=== PATIENT | female | born 1930 | race Caucasian/White ===

== ENCOUNTER 2016-07-27 21:01 | Observation (INO) ==
--- NOTE | 2016-07-27 21:33 | EKG Report ---
Test Performed on : 07/27/2016 9:24:06 PM Test Reason : CHEST PAIN Blood Pressure : / mmHG Vent. Rate : 070 BPM Atrial Rate : 070 BPM P-R Int : 154 ms QRS Dur : 098 ms QT Int : 446 ms P-R-T Axes : 036 -11 003 degrees QTc Int : 481 ms Sinus rhythm. with occasional premature ventricular complexes. Otherwise normal ECG No previous ECGs available Unconfirmed Result
[2016-07-27 21:51] LABS: BASO% 0.3 % (0.0-0.8); EOS% 0.8 % (0.0-10.0); HEMATOCRIT 40.8 % (37.0-47.0); HEMOGLOBIN 13.6 g/dL (12.0-16.0); IMM GRAN# 0.02 X1000 (0.0-0.04); IMM GRAN% 0.2 % (0.0-0.5); LYMPH# 1.09 X1000 (1.2-3.4); LYMPH% 8.3 % (20.5-51.1); MANUAL DIFF NEEDED? NO; MCH 28.6 PG (27-31); MCHC 33.3 g/dL (33-37); MCV 85.7 FL (81-99); MONO# 0.64 X1000 (0.11-0.59); MONO% 4.9 % (1.7-9.3); MPV 10.3 FL (7.4-10.4); NEUT% 85.5 % (42.2-75.2); PLT 281 X1000 (130-400); RBC 4.76 XMIL (4.2-5.4)
[2016-07-27 22:03] LABS: INR 0.97 (0.86-1.15); PROTIME 13.2 Seconds (12.1-15.5); PTT PL 29.5 Seconds (22.6-43.9)
[2016-07-27 22:04] LABS: AMYLASE 33 U/L (20-200); LIPASE 22 U/L (13-60)
[2016-07-27 22:08] LABS: AGAP 13; ALBUMIN 3.9 g/dL (3.5-5.0); ALKALINE PHOSPHATASE 116 U/L (32-104); BUN 16 mg/dL (8-22); CALCIUM 9.5 mg/dL (8.8-10.2); CHLORIDE 96 mmol/L (98-107); CK PROFILE 72 U/L (24-173); COSMO 276; GOT 12 U/L (10-30); GPT < 5 U/L (10-36); MAGNESIUM 1.8 mg/dL (1.5-2.7); POTASSIUM 3.4 mmol/L (3.5-5.1); SODIUM 135 mmol/L (136-145); TCO2 26 mmol/L (25-35)
[2016-07-27] MEDS ORDERED: ZOFRAN IV ONE (22:31)
[2016-07-27] MEDS ORDERED: MORPHINE IV ONE (22:31)
[2016-07-28] MEDS ORDERED: MORPHINE IV PRN (01:02)
[2016-07-28] MEDS ORDERED: ZOFRAN IV PRN (01:02)
[2016-07-28] MEDS ORDERED: NS 1,000 ML IV ONE (01:02)
--- NOTE | 2016-07-28 01:51 | Diag Imaging Result Document ---
PROCEDURE NAME: HEAD W/O CONTRAST - 07/27/2016 STUDY: CT brain without contrast. PROTOCOL: Dose reduction protocol. No parenchymal hemorrhage. No epidural or subdural hematoma. No subarachnoid hemorrhage. No mass identified on this noncontrasted exam. Mild atrophy. No hydrocephalus. No sinus opacification. IMPRESSION: 1. No hemorrhage. 2. Atrophy with mild microvascular ischemic changes. A preliminary report was given at 11:25 p.m.
[2016-07-28] MEDS: TYLENOL PO PRN ×3 (03:00→15:56)
[2016-07-28] MEDS ORDERED: AVAPRO PO ONE (07:02)
[2016-07-28] MEDS ORDERED: COREG PO SCH (09:00)
[2016-07-28] MEDS ORDERED: HYDROCHLOROTHIAZIDE PO SCH (09:00)
--- NOTE | 2016-07-28 09:13 | Diag Imaging Result Document ---
PROCEDURE NAME: CHEST-2 VIEWS - 07/27/2016 FRONTAL AND LATERAL CHEST, TWO VIEWS: FINDINGS: The lungs are well expanded. The heart is not enlarged. The vessels are not distended. No pneumonia. No pleural effusions. No free air beneath the diaphragm. Mild to moderate scoliosis. IMPRESSION: No acute abnormality.
--- NOTE | 2016-07-28 10:20 | Diag Imaging Result Document ---
PROCEDURE NAME: ANGIOGRAM/PULMONARY ARTERIES - 07/28/2016 CT CHEST WITH INTRAVENOUS CONTRAST: FINDINGS: There is normal opacification of the pulmonary arteries and their major branches. The heart is mildly enlarged. No thoracic aortic aneurysm or dissection. Prominent atherosclerosis. No pleural effusions. No consolidation. No bronchiectasis. IMPRESSION: 1. No pulmonary emboli. 2. Mild cardiomegaly. A preliminary report was given at 8:21 a.m.
[2016-07-28 15:45] VITALS: BP 155/68
--- NOTE | 2016-08-05 09:17 | HISTORY AND PHYSICAL ---
HISTORY: The patient is an 86-year-old female who presented to the emergency room complaining of chest pain. Was seen earlier in the day by myself. Was told to come back if she began to feel worse. Patient states now she is having pain in her left shoulder as well as in her chest. No vomiting, diarrhea, nausea, or shortness of breath at this time. The pain was located centrally in her chest. It was an aching pressure that radiated to her shoulders that had begun approximately 1 day prior and was still present when she presented to the emergency room. She was doing no special activity when this occurred, light activity at the best. She did not take an aspirin nor nitroglycerin prior to arrival. She had a previous cardiac workup earlier in the day. When she came to the ER, she had a normal set of vital signs other than her blood pressure was 171/99. Her electrolytes that they had done and comprehensive metabolic panel only showed a slightly low potassium at 3.4 and a glucose of 180. Her liver functions were normal. Cardiac enzymes again were normal. ProBNP was only 218. On CBC, white count was hematocrit was 40.8, platelet count was 281,000. Her D-dimer is 0.78. She was seen in the ER by Dr. Russell. Was given morphine and Zofran for her pain, along with Tylenol and normal saline was administered at 80 mL per hour. Troponins were again ordered. REVIEW OF SYSTEMS: Constitutional: She denies any fever, chills, weight gain, weight loss. Eyes: No visual changes. No irritation of her eyes. No field cuts. Ears, Nose, and Throat: No pharyngitis, otitis, or sinusitis. Cardiovascular: She denied palpitations, syncope, or significant peripheral edema, PND, or orthopnea. Respiratory: No cough, wheeze, phlegm production. Not particularly short of breath. Gastrointestinal: No nausea, vomiting, diarrhea, constipation, bloody stools, black tarry stools, abdominal pain. : No polyuria, dysuria, hematuria. Musculoskeletal: She denies any joint aches, muscle aches, or swelling. Skin: No skin rashes or lesions. Neurological: She had no focal neurological deficits. No headaches, migraines, or syncopal type symptoms. Endocrine: No polyuria, polydipsia, heat or cold intolerance. Allergic: No wheeze. No hayfever symptom. Past smoking history. PAST MEDICAL HISTORY: She has a history of hypertension. No other significant problems. PAST SURGICAL HISTORY: She has not had any surgical procedures. SOCIAL HISTORY: She is a nonsmoker and nondrinker. She does not abuse drugs. PHYSICAL EXAMINATION: VITAL SIGNS: At the time of admission, she was afebrile, pulse was 68, respiratory rate was 20. BP was 171/99, O2 saturation was 93% on room air. HEENT: Her head was normocephalic. Eyes were PERRLA. EOMs intact. Sclerae clear. Fundi benign. Nares patent. Oropharynx negative. NECK: Supple without any carotids, without thyromegaly or lymphadenopathy. CHEST: Bilaterally clear breath sounds. CARDIOVASCULAR: Regular rhythm and rate. No murmurs, gallops, clicks, or rubs. ABDOMEN: Soft. No hepatosplenomegaly. No CVA tenderness. EXTREMITIES: Negative for clubbing, cyanosis, or edema. NEUROLOGIC: Examination was symmetrical. ADMITTING DIAGNOSES: 1. Atypical chest pain. 2. History of hypertension. We also had a CT of her head done in the ER that was negative. cc: Steve Saldaña MD
--- NOTE | 2016-08-06 04:30 | DISCHARGE SUMMARY ---
ADMISSION DATE: 07/28/2016 DISCHARGE DATE: 07/28/2016 The patient presented to the emergency room complaining of shoulder and earlier in the day chest pain with a background history of hypertension and thyroid disease. She presented and was seen in the emergency room and hospitalized. DATABASE: Included the following: She had an initial chest x-ray that revealed no abnormalities. She had a CT of her head, no hemorrhages. Atrophy with mild microvascular ischemic changes. She had a pulmonary arteriogram which showed no pulmonary emboli, mild cardiomegalia. She had an electrocardiogram which showed sinus rhythm with occasional premature ventricular contractions; otherwise, normal. She had labs drawn. Laboratory Data: Her sedimentation rate was 36.4, white count was 13,120, hematocrit was 40.8, platelet count was 281,000. Her differential she had 86% neutrophils, 8.3% lymphocytes. Coag studies: D-dimer was 0.78, INR is 0.9. PTT 29.5. Chemistries: Sodium was 135, potassium 3.4, chloride 96, CO2 26, BUN 16, creatinine 0.8, glucose 180. ALT less than 5, AST 12, alkaline phosphatase 116. Serial cardiac enzymes were all negative. Troponin were all negative. Lipase and amylase likewise were normal. She had a brief overnight stay in the hospital. After she ruled out she was discharged on 07/28, afebrile. Respiratory rate is 18. O2 saturation was 98 on room air. Blood pressure 147/73, pulse was 95. We did a sedimentation rate and we may have considered pursuing as an outpatient a diagnosis of PMR and a possibility of a neck evaluation. She was discharged with atypical chest pain, history of hypertension, dyslipidemia, and will be following in the office. cc: Steve Saldaña MD
--- NOTE | 2016-08-24 19:22 | ED EKG INTERP ---
This chart was entered by Radha Green Scribe, acting as scribe for Barry Russell DO. EKG Interpretation - EKG Time of EKG reading by physician:: 21:25 EKG Read and Signed by:: Barry Russell EKG Interpretation (*Must complete 3 of following elements*): Normal Rate: 70 Rhythm: SR W/ OCCASIONAL PVC Vernalis: normal QRS: normal UT Interval: normal This chart was documented by the indicated scribe, (Radha Green Scribe) and accurately reflects the services I performed and decisions made by , Barry Russell DO, as attested by the provider's signature.
--- NOTE | 2016-08-24 19:23 | PROVIDER DOCUMENTATION ---
This chart was entered by Radha Green Scribe, acting as scribe for Barry Russell DO. HPI-Chest Pain - General Chief Complaint: Shoulder Pain Stated Complaint: CHEST PAIN/WAS HERE IN TH AM Time Seen by Provider: 07/27/16 21:13 Source: patient Allergies/Adverse Reactions: Patient Allergies Allergy/AdvReac Type Severity Reaction Status Date / Time No Known Allergies Allergy Verified 07/27/16 08:39 Home Medications: Home Medication List Medication Instructions Recorded Confirmed Last Taken Type Carvedilol [Coreg] 1 tab PO DAILY 07/27/16 07/28/16 Unknown History Irbesartan/Hydrochlorothiazide 1 tab PO DAILY 07/27/16 07/28/16 Unknown History [Irbesartan-Hctz 300-12.5 mg Tb] Omeprazole 1 cap PO DAILY 07/27/16 07/28/16 Unknown History Celecoxib 1 tab PO DAILY 07/28/16 07/28/16 Unknown History Clonidine [Catapres] 0.1 mg PO BID PRN PRN #20 tablet 07/28/16 Unknown Rx Levothyroxine Sodium 1 tab PO DAILY 07/28/16 07/28/16 Unknown History - History of Present Illness-CP Nature of Presenting Problem: PT IS A 86YOF PRESENTING TO THE ED C/O CP. PT WAS SEEN THIS AM BY DR BUSTAMANTE AND WAS TOLD TO COME BACK IF SHE BEGAN TO FEEL WORSE. PT STATES NOW SHE IS HAVING PAIN IN HER LEFT SHOULDER WELL HER CHEST. NO V/D/N OR SOB AT THIS TIME Location: reports: central Chest Pain Radiation: reports: shoulders Quality of Pain: reports: aching, pressure Severity in ED: moderate Onset/Duration: 24 hours ago Timing: still present Context/Activities at Onset: reports: light activity Modifying Factors: improves with: nothing Associated Symptoms: reports: denies symptoms Nitro Today/Relief: no nitro taken today Aspirin Treatment Today: no aspirin today Prior Chest Pain/Cardiac Workup: reports: other (CARDIAC WORK UP TODAY PER DR BUSTAMANTE) Similar Symptoms Previously?: Yes Recently Seen Here or By Another Healthcare Provider: Yes (TODAY) Review of Systems - Adult - REVIEW OF SYSTEMS - ADULT Constitutional: reports: no symptoms reported Eyes: reports: no symptoms reported Ears, Nose, Mouth & Throat: reports: no symptoms reported Cardiovascular: reports: see HPI, chest pain. denies: palpitations, syncope Respiratory: reports: no symptoms reported Gastrointestinal: reports: no symptoms reported Genitourinary: reports: no symptoms reported Musculoskeletal: reports: no symptoms reported Integumentary: reports: no symptoms reported Neurological: reports: no symptoms reported Psychiatric: reports: no symptoms reported Endocrine: reports: no symptoms reported Hematologic/Lymphatic: reports: no symptoms reported Allergic/Immunologic: reports: no symptoms reported All Other Systems: Reviewed and Negative Past History - Adult - PAST MEDICAL HISTORY-ADULT Review of Records: reports: Old Records Reviewed, Nursing Assessment Review, Medications Reviewed, Social history reviewed & non-contributory. Major Childhood Illnesses: reports: denies history Cardiovascular: reports: HTN Respiratory: reports: denies history Gastrointestinal: reports: denies history Obstetrical/Gynecological: reports: denies history Genitourinary: reports: denies history Musculoskeletal: reports: denies history Neurological: reports: denies history Endocrine/Immune: reports: denies history Other Conditions: reports: denies history - PRIOR SURGERIES/PROCEDURES Surgical/Procedure History: reports: none - IMMUNIZATION STATUS Childhood Immunizations: See Nurse Assessment Flu Vaccine: See Nurse Assessment - FAMILY HISTORY Family History: reviewed, not pertinent - SOCIAL HISTORY Smoking: denies, non-smoker Substance Use: none/never, denies Alcohol Use Frequency: never Living Situation: family Physical Exam-General - PHYSICAL EXAM-ADULT Initial Vital Signs Reviewed: Yes - CONSTITUTIONAL General Appearance: appears well, alert, moderate distress, anxious. negative: mild distress - EYES Eyes: PERRL/EOMI, pink conjunctivae, FUN - HEAD, EARS, NOSE, MOUTH & THROAT HENMT: normocephalic/atraumatic, moist mucous membranes, normal ENT inspection, TMs normal, pharynx normal - NECK Neck: non-tender, full range of motion, supple, normal inspection - RESPIRATORY Respiratory: chest non-tender, lungs clear, normal breath sounds, no pleuratic chest pain, no respiratory distress, no accessory muscle use - CARDIOVASCULAR Cardiovascular: normal peripheral pulses, regular rate, rhythm, no edema, no gallop, no JVD, no murmur - GASTROINTESTINAL (ABDOMEN) Abdominal Exam: normal bowel sounds, non tender, soft, no organomegaly, no pulsatile mass - LYMPHATIC Lymphatic: no adenopathy - MUSCULOSKELETAL Back Exam: normal inspection, no CVA tenderness, no vertebral tenderness Extremity: normal range of motion, non-tender, normal gait, normal inspection, no pedal edema, no calf tenderness, normal capillary refill, pelvis stable - SKIN Integumentary: normal color, normal turgor, warm/dry - NEUROLOGIC 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 negative: normal mood/affect Progress - PLAN OF CARE/RESULTS Progress/Plan/Lab Results: Orders Category Date Time Status Admit - [facility] Routine AdmDCTranf 07/28/16 01:02 Ordered Activity - Strict Bedrest ORDERED Care 07/28/16 01:02 Active Call Admitting on Arrival AT ADMISSION Care 07/28/16 01:03 Completed Cardiac Monitoring DIRECTED Care 07/27/16 21:13 Completed Saline Loc DIRECTED Care 07/28/16 01:02 Completed Saline Loc NOW Care 07/27/16 21:13 Completed Vital Signs Order ARRIVAL TO ROOM Care 07/28/16 01:02 Completed Heart Healthy Diet Diet 07/28/16 01:04 Completed NPO Diet 07/27/16 21:14 Completed CHEST-2 VIEWS [RAD] Stat Exams 07/27/16 21:13 Completed HEAD W/O CONTRAST [CT] Stat Exams 07/27/16 22:32 Completed AMYLASE [CHEM] Stat Lab 07/27/16 21:35 Completed CBC WITH ELECTRONIC DIFF [HEME] Stat Lab 07/27/16 21:35 Completed CK PROFILE [SP CHEM] Stat Lab 07/27/16 21:35 Completed COMPREHENSIVE METABOLIC PANEL [CHEM] Stat Lab 07/27/16 21:35 Com[address] D-DIMER [address] [COAG] Stat Lab 07/27/16 21:35 Completed LIPASE [CHEM] Stat Lab 07/27/16 21:35 Completed MAGNESIUM [CHEM] Stat Lab 07/27/16 21:35 Completed PRO B-NATRIURETIC PEPTIDE Stat Lab 07/27/16 21:35 Completed PROTIME WITH INR PL [COAG] Stat Lab 07/27/16 21:[address] [COAG] Stat Lab 07/27/16 21:35 Completed TROPONIN T Q8HR Lab 07/28/16 05:25 Completed TROPONIN T Q8HR Lab 07/28/16 12:54 Completed TROPONIN T Stat Lab 07/27/16 21:35 Completed 0.9% Sodium Chloride Inj [Ns] 1,000 ml Med 07/28/16 01:02 Discontinued IV 80 mls/hr Acetaminophen [Tylenol] Med 07/28/16 01:02 Discontinued 650 mg PO Q6H PRN PRN Morphine Med 07/28/16 01:02 Discontinued 2 mg IV Q2H PRN PRN Morphine Med 07/27/16 22:31 Discontinued 4 mg IV NOW ONE Ondansetron [Zofran] Med 07/27/16 22:31 Discontinued 4 mg IV NOW ONE Ondansetron [Zofran] Med 07/28/16 01:02 Discontinued 4 mg IV Q4H PRN PRN Oxygen Device Routine Oth 07/28/16 01:03 Active Telemetry [OM.EQ] Routine Oth 07/28/16 01:02 Active EKG [EKG] Stat Ther 07/27/16 21:13 Draft Transfer/Admit Order [TRANSFER] Routine Transfer 07/28/16 01:04 Completed Result Diagrams: 07/27/16 21:35 07/27/16 21:35 - CT/MRI 1 CT Study: Head (NO BLOOD, CHRONIC ISCHEMIC CHANGES) Departure - Departure Time of Disposition Decision: 01:00 DIAGNOSIS: Chest pain Disposition: HOME 01 Certified Medical Emergency: Emergent Condition: Stable - Critical Care Note This patient required my direct & personal management of CC.: No This chart was documented by the indicated scribe, (Radha Green Scribe) and accurately reflects the services I performed and decisions made by me, Barry Russell DO, as attested by the provider's signature.
== END 2016-07-28 17:27 | disposition home or self-care (01) ==
LOC: P.ED 21:01 → P.MEDSURG 21:01
PROVIDERS: ADMIT Internal Medicine; ATTEND Internal Medicine

== ENCOUNTER 2018-08-11 14:23 | Inpatient (IN) ==
[2018-08-11] MEDS ORDERED: ASPIRIN PO ONE (15:09)
--- NOTE | 2018-08-11 15:33 | Diag Imaging Result Doc PS360 ---
EXAM: CHEST-2 VIEWS HISTORY: SOB TECHNIQUE: PA and Lateral chest x-ray COMPARISON: 06/30/2017 FINDINGS: There is increased cardiomegaly with pulmonary vascular congestion. There are new bilateral pleural effusions left greater than right and bibasilar airspace left greater than right. IMPRESSION: New vascular congestion, bibasilar airspace disease and effusions left greater than right. Suspect cardiogenic edema. Correlate clinically. Electronically signed by Elsie Camargo 08/11/2018 3:30 PM
--- NOTE | 2018-08-11 15:34 | PROVIDER DOCUMENTATION ---
HPI-Cardiac General - General Chief Complaint: Shortness of Breath Stated Complaint: SOB / ANKLES SWOLLEN Time Seen by Provider: 08/11/18 15:24 Source: patient Allergies/Adverse Reactions: Patient Allergies Allergy/AdvReac Type Severity Reaction Status Date / Time No Known Allergies Allergy Verified 09/25/16 10:58 Home Medications: Home Medication List Medication Instructions Recorded Confirmed Last Taken Type Carvedilol [Coreg] 1 tab PO DAILY 07/27/16 11/17/17 Unknown History Irbesartan/Hydrochlorothiazide 1 tab PO DAILY 07/27/16 11/17/17 Unknown History [Irbesartan-Hctz 300-12.5 mg Tb] Omeprazole 1 cap PO DAILY 07/27/16 11/17/17 Unknown History Celecoxib 1 tab PO DAILY 07/28/16 11/17/17 Unknown History Levothyroxine Sodium 1 tab PO DAILY 07/28/16 11/17/17 Unknown History Clonidine HCl 0.1 mg PO TID PRN #60 tablet 11/17/17 Unknown Rx Donepezil [Aricept] 10 mg PO DAILY 11/17/17 11/17/17 Unknown History - History of Present Illness-Cardiac Nature of Presenting Problem: 88 YOF PRESENTS WITH SOB AND SWELLING OF ANKLES. SHE DENIES CP ON EXAM. IS SOB AT REST. SPOUSE REPORTS SHE DOES NOT TAKE MEDICATIONS CONSISTENTLY AT HOME REPORTS SHE HAS BEEN SOB ON AND OFF FOR THE LAST FEW MONTHS Location: denies: substernal, central, epigastric, shoulder, back, abdomen, other Quality of Pain: reports: none Severity in ED: mild Onset/Duration: other (ON AND OFF FOR A FEW MONTHS) Context/Activities at Onset: reports: none Modifying Factors: improves with: movement Palpitation Quality: N/A History of arrythmia: reports: none Nitro Today/Relief: reports: no nitro taken today Aspirin Treatment Today: reports: no aspirin today Associated Symptoms: reports: shortness of breath Similar Symptoms Previously?: No Recently Seen Here or By Another Healthcare Provider: No Review of Systems - Adult - REVIEW OF SYSTEMS - ADULT Constitutional: reports: no symptoms reported. denies: see HPI, chills, fever, fatique, night sweats, weight gain, weight loss, other Eyes: reports: no symptoms reported. denies: see HPI, discharge, dry eyes, decreased vision, blurred vision, double vision, eye pain, redness, other Ears, Nose, Mouth & Throat: reports: no symptoms reported. denies: see HPI, ear discharge, ear pain, hearing loss, tinnitus, epistaxis, sinus problem, nose pain, loose teeth, mouth/dental pain, mouth swelling, hoarseness, throat pain, throat swelling, other Cardiovascular: reports: edema, orthopnea. denies: no symptoms reported, see HPI, chest pain, heart murmur, irregular heart rate, palpitations, poor circulation, PND, syncope, other Respiratory: reports: shortness of breath, wheezing. denies: no symptoms rep orted, see HPI, chronic cough, cough, dyspnea on exertion, excessive sputum production, hemoptysis, pleurisy, other Gastrointestinal: reports: no symptoms reported. denies: see HPI, abdominal pain, hematemesis, constipation, diarrhea, difficulty swallowing, frequent heartburn, nausea, poor appetite, rectal bleeding, vomiting, other Genitourinary: reports: no symptoms reported. denies: see HPI, dysuria, discharge, frequency, flank pain, frequent UTI's, hematuria, hesitency, incontinence, urinary retention, urgency, other Musculoskeletal: reports: no symptoms reported. denies: see HPI, bone pain, back pain, frequent leg cramps, joint pain, joint swelling, muscle aches, muscle weakness, neck pain, other Integumentary: reports: no symptoms reported. denies: see HPI, hives, hair loss, itching, mole changes, nail changes, rash, skin sores/ulcer, skin thickening, other Neurological: reports: no symptoms reported. denies: see HPI, ataxia, dizziness/vertigo, headache/migraines, loss of balance, numbness, paresthesia, seizure, slurred speech, syncope, tremors, other Psychiatric: reports: no symptoms reported. denies: see HPI, anxiety, anti- depressant use, alcohol/drug dependence, depression, emotional problems, insomnia, panic attacks, suicidal thoughts, other Endocrine: reports: no symptoms reported. denies: see HPI, change in skin pigment, excessive sweating, goiter, cold intolerance, heat intolerance, increased hunger, increased thirst, polyuria, other Hematologic/Lymphatic: reports: no symptoms reported. denies: see HPI, blood clots, easy bruising, low blood count, lymphedema, prolonged bleeding, swollen lymph nodes, transfusions, other Allergic/Immunologic: reports: no symptoms reported. denies: see HPI, allergic reactions, allergic rhinitis, asthma, eczema, food allergy, frequent infections, hay fever, hives, positive PPD, urticaria, other Past History - Adult - PAST MEDICAL HISTORY-ADULT Review of Records: reports: Nursing Assessment Review, Social history reviewed & non-contributory. Major Childhood Illnesses: reports: denies history Cardiovascular: reports: HTN Respiratory: reports: denies history Gastrointestinal: reports: denies history Obstetrical/Gynecological: reports: denies history Genitourinary: reports: denies history Musculoskeletal: reports: denies history Neurological: reports: denies history Endocrine/Immune: reports: thyroid disorder Other Conditions: reports: other cancer (melanoma) - PRIOR SURGERIES/PROCEDURES Surgical/Procedure History: reports: hysterectomy - IMMUNIZATION STATUS Childhood Immunizations: See Nurse Assessment Flu Vaccine: See Nurse Assessment - FAMILY HISTORY Family History: reviewed, not pertinent Physical Exam-General - PHYSICAL EXAM-ADULT Initial Vital Signs Reviewed: Yes - CONSTITUTIONAL General Appearance: alert, mild distress, obese - EYES Eyes: PERRL/EOMI, pink conjunctivae - HEAD, EARS, NOSE, MOUTH & THROAT HENMT: normocephalic/atraumatic, moist mucous membranes - NECK Neck: full range of motion - RESPIRATORY Respiratory: decreased breath sounds, wheezing - CARDIOVASCULAR Cardiovascular: normal peripheral pulses. negative: no edema (EDEMA BLE TO ANKLES) - GASTROINTESTINAL (ABDOMEN) Abdominal Exam: normal bowel sounds, non tender - LYMPHATIC Lymphatic: no adenopathy - MUSCULOSKELETAL Back Exam: normal inspection, no CVA tenderness Extremity: normal range of motion, non-tender - SKIN Integumentary: normal color, normal turgor, warm/dry - NEUROLOGIC Neurologic: grossly normal - PSYCHIATRIC Psych/Mental Status: normal mood/affect, oriented x 3 - HEART Score HEART Score: Age: > or = 65 Years HEART Score: Risk Factors for Atherosclerotic Disease: > or = 3 Risk Factors or History of Atherosclerotic Disease Progress - PLAN OF CARE/RESULTS Progress/Plan/Lab Results: Vital Signs - 8 hr 08/11/18 14:25 08/11/18 16:20 08/11/18 16:37 Temperature 97.7 F Pulse Rate 78 73 73 Respiratory Rate 18 23 21 Blood Pressure 187/116 209/127 201/140 O2 Sat by Pulse Oximetry 91 L 94 L 94 L Laboratory Results - last 24 hr 08/11/18 08/11/18 08/11/18 15:42 15:42 15:42 WBC 7.57 RBC 4.63 Hgb 12.4 Hct 38.9 MCV 84.0 MCH 26.8 L MCHC 31.9 L RDW Std Deviation 15.3 H Plt Count 256 MPV 10.4 Immature Gran % (Auto) 0.3 Neut % (Auto) 73.9 Lymph % (Auto) 18.0 L Sum[place] % (Auto) 5.5 Eos % (Auto) 1.8 Baso % (Auto) 0.5 Immature Gran # (Auto) 0.02 Neut # (Auto) 5.59 Lymph # (Auto) 1.36 [place] # (Auto) 0.42 Eos # (Auto) 0.14 Baso # (Auto) 0.04 PT INR PTT (Actin FS) Sodium 142 Potassium 3.8 Chloride 103 Carbon Dioxide 26 Anion Gap 13 BUN 19 Creatinine 0.6 Estimated GFR/1.73 m2 > 60 BUN/Creatinine Ratio 32 Glucose 114 H Calculated Osmolality 286 Calcium 8.8 Troponin T < 0.010 08/11/18 15:44 WBC RBC Hgb Hct MCV MCH MCHC RDW Std Deviation Plt Count MPV Immature Gran % (Auto) Neut % (Auto) Lymph % (Auto) Sum[place] % (Auto) Eos % (Auto) Baso % (Auto) Immature Gran # (Auto) Neut # (Auto) Lymph # (Auto) Sum[place] # (Auto) Eos # (Auto) Baso # (Auto) PT 14.6 INR 1.08 PTT (Actin FS) 30.4 Sodium Potassium Chloride Carbon Dioxide Anion Gap BUN Creatinine Estimated GFR/1.73 m2 BUN/Creatinine Ratio Glucose Calculated Osmolality Calcium Troponin T Orders Category Date Time Status Saline Loc NOW Care 08/11/18 14:59 Active CHEST-2 VIEWS [RAD] Stat Exams 08/11/18 14:58 Completed BASIC METABOLIC PANEL [CHEM] Stat Lab 08/11/18 15:42 Completed CBC WITH ELECTRONIC DIFF [HEME] Stat Lab 08/11/18 15:42 Completed PRO B-NATRIURETIC PEPTIDE Stat Lab 08/11/18 15:42 Received PROTIME WITH INR [COAG] Stat Lab 08/11/18 15:44 Completed PTT [COAG] Stat Lab 08/11/18 15:44 Completed TROPONIN T Stat Lab 08/11/18 15:42 Completed Aspirin Med 08/11/18 15:09 Discontinued 325 mg PO NOW ONE Carvedilol [Coreg] Med 08/11/18 17:01 Once 3.125 mg PO NOW ONE Furosemide [Lasix] Med 08/11/18 15:46 Discontinued 40 mg IV NOW ONE Hydrochlorothiazide Med 08/11/18 17:01 Once 12.5 mg PO NOW ONE Irbesartan [Avapro] Med 08/11/18 17:01 Once 300 mg PO NOW ONE EKG [EKG] Stat Ther 08/11/18 14:58 Ordered Result Diagrams: 08/11/18 15:42 08/11/18 15:42 - REASSESSMENT Reassessment #1 Time Reassessed: 16:41 (DR. BUSTAMANTE PAGED FOR ADMIT) Status: unchanged Reassessment #2 Time Reassessed: 17:01 (IRBESARTAN, HCTZ, COREG GIVEN PER DR. BUSTAMANTE. WILL ADMI T) Status: unchanged - XRAY 1 XRAY Study: Chest Impression: Abnormal, See EMR Report (New vascular congestion, bibasilar airspace disease and effusions left greater than right. Suspect cardiogenic edema. Correlate clinically.) Comparison with other Films: no changes XRAY Interpretation: New vascular congestion, bibasilar airspace disease and effusions left grea Departure - Departure Date of Disposition Decision: 08/11/18 Time of Disposition Decision: 17:02 DIAGNOSIS: HTN (hypertension) Qualifiers: Hypertension type: unspecified Qualified Code(s): I10 - Essential (primary) hypertension Pulmonary edema Qualifiers: Chronicity: acute Qualified Code(s): J81.0 - Acute pulmonary edema Disposition: ADMITTED INPATIENT 09 Certified Medical Emergency: Emergent Condition: Stable Referrals and Follow-Ups: Steve Bustamante MD [Primary Care Provider] - - Critical Care Note This patient required my direct & personal management of CC.: No Attestation - Physician/ DELORES Attestation Patient care was provided by Advanced Practice Provider:: Yes Advanced Practice Provider:: Amanda Alberts Advanced Practice Provider documentation review:: The Mid-level provider documentation, treatment plan and medical decision making was reviewed by the physician who agrees with all treatment and medical decision making by the [facility]. The physician spent face to face time with patient:: No Advanced Practice Provider documentation review:: Supervising physician onsite and consulted in the evaluation and care of this patient. The physician did not have a face to face encounter with the patient.
[2018-08-11] MEDS ORDERED: LASIX IV ONE ×2 (15:46→21:44)
[2018-08-11 16:10] LABS: AGAP 13; BUN 19 mg/dL (8-22); CALCIUM 8.8 mg/dL (8.8-10.2); CHLORIDE 103 mmol/L (98-107); COSMO 286; CREATININE 0.6 mg/dL (0.5-0.9); ESTIMATED GFR > 60; GLUCOSE 114 mg/dL (70-104); POTASSIUM 3.8 mmol/L (3.5-5.1); SODIUM 142 mmol/L (136-145); TCO2 26 mmol/L (25-35)
[2018-08-11 16:35] LABS: INR 1.08; PROTIME 14.6 Seconds (11.0-16.0); PTT 30.4 Seconds (22.3-41.8)
[2018-08-11 16:38] LABS: BASO# 0.04 X1000 (0.0-0.2); BASO% 0.5 % (0.0-0.8); EOS# 0.14 X1000 (0.0-0.7); EOS% 1.8 % (0.0-10.0); HEMATOCRIT 38.9 % (37.0-47.0); HEMOGLOBIN 12.4 g/dL (12.0-16.0); IMM GRAN# 0.02 X1000 (0.0-0.04); IMM GRAN% 0.3 % (0.0-0.5); LYMPH# 1.36 X1000 (1.2-3.4); MCH 26.8 PG (27-31); MCHC 31.9 g/dL (33-37); MONO# 0.42 X1000 (0.11-0.59); MONO% 5.5 % (1.7-9.3); MPV 10.4 FL (7.4-10.4); NEUT# 5.59 X1000 (1.4-6.5); NEUT% 73.9 % (42.2-75.2); PLT 256 X1000 (130-400); RBC 4.63 XMIL (4.2-5.4); RDW 15.3 % (11.5-14.5); WBC 7.57 X1000 (4.8-10.8)
[2018-08-11] MEDS ORDERED: HYDROCHLOROTHIAZIDE PO ONE (17:01)
[2018-08-11] MEDS ORDERED: COREG PO ONE (17:01)
[2018-08-11] MEDS ORDERED: AVAPRO PO ONE (17:01)
[2018-08-11] MEDS ORDERED: CATAPRES PO PRN (21:55)
[2018-08-11] MEDS: COREG PO SCH (23:58)
[2018-08-11] MEDS: LOVENOX SUBQ SCH (23:58)
[2018-08-12] MEDS: SYNTHROID PO SCH (06:17)
[2018-08-12] MEDS: PRILOSEC PO SCH (06:18)
[2018-08-12] MEDS: AVAPRO PO SCH (08:43)
[2018-08-12] MEDS: LOVENOX SUBQ SCH ×2 (08:44→22:23)
[2018-08-12] MEDS: COREG PO SCH ×2 (08:44→22:22)
[2018-08-12] MEDS: ARICEPT PO SCH (08:44)
[2018-08-12] MEDS: HYDROCHLOROTHIAZIDE PO SCH (08:45)
[2018-08-12] MEDS ORDERED: COREG PO SCH (09:00)
[2018-08-12 15:05] LABS: BASO# 0.03 X1000 (0.0-0.2); BASO% 0.4 % (0.0-0.8); EOS# 0.19 X1000 (0.0-0.7); EOS% 2.7 % (0.0-10.0); HEMATOCRIT 36.4 % (37.0-47.0); HEMOGLOBIN 11.4 g/dL (12.0-16.0); IMM GRAN# 0.01 X1000 (0.0-0.04); IMM GRAN% 0.1 % (0.0-0.5); LYMPH# 1.11 X1000 (1.2-3.4); LYMPH% 15.5 % (20.5-51.1); MCH 26.3 PG (27-31); MCHC 31.3 g/dL (33-37); MCV 83.9 FL (81-99); MONO# 0.47 X1000 (0.11-0.59); MONO% 6.6 % (1.7-9.3); MPV 10.2 FL (7.4-10.4); NEUT# 5.33 X1000 (1.4-6.5); NEUT% 74.7 % (42.2-75.2); PLT 244 X1000 (130-400); RBC 4.34 XMIL (4.2-5.4); RDW 15.3 % (11.5-14.5); WBC 7.14 X1000 (4.8-10.8)
[2018-08-12 15:24] LABS: AGAP 10; ALBUMIN 3.4 g/dL (3.5-5.0); ALKALINE PHOSPHATASE 114 U/L (32-104); BUN 16 mg/dL (8-22); CALCIUM 8.3 mg/dL (8.8-10.2); CHLORIDE 98 mmol/L (98-107); COSMO 282; CREATININE 0.7 mg/dL (0.5-0.9); ESTIMATED GFR > 60; GLUCOSE 123 mg/dL (70-104); GOT 12 U/L (10-30); GPT < 5 U/L (10-36); POTASSIUM 2.9 mmol/L (3.5-5.1); SODIUM 140 mmol/L (136-145); TCO2 32 mmol/L (25-35); TOTAL PROTEIN 6.2 g/dL (6.3-8.3)
--- NOTE | 2018-08-12 16:24 | ECHO REPORT ---
ORDER DATE: 08/12/2018 INTERPRETING PHYSICIAN: Bill Fermin MD ECHOCARDIOGRAPHIC MEASUREMENTS: 1. Interventricular septum 1.6 cm. 2. Left ventricular posterior wall 1.6 cm. 3. Diastolic diameter 5.1 cm. 4. Left atrium 4.5 cm. 5. Aorta 3.2 cm. SUMMARY OF THE 2-DIMENSIONAL IMAGIN. Mitral valve leaflets are normal. 2. There is moderate to severe mitral annular calcification. 3. Aortic valve leaflets were sclerosed, trileaflet, opening normally. 4. Pulmonic valve was normal. 5. Mitral valve was normal. 6. Normal left ventricular cavity size. 7. There is concentric left ventricular hypertrophy. 8. Estimated ejection fraction of 40%. 9. There is anteroseptal hypokinesis. 10. There is severe biatrial enlargement. 11. There is moderate mitral regurgitation. 12. There is diastolic dysfunction. 13. Peak velocity across the aortic valve less than 2 m/sec. 14. There is no aortic stenosis. 15. There is aortic sclerosis. 16. There is mild aortic regurgitation. 17. There is mild tricuspid regurgitation. 18. Peak velocity across the tricuspid valve was 2.7 m/sec. 19. Estimated pulmonary artery systolic pressure of 40 mmHg. 20. There is no pericardial effusion or obvious intracardiac mass or thrombus seen. cc: MD Steve Valdes MD
[2018-08-12] MEDS ORDERED: KLOR-CON PO ONE ×2 (19:49→23:00)
[2018-08-12 21:28] LABS: BILIRUBIN URINE NEGATIVE (NEGATIVE); BLOOD URINE NEGATIVE (NEGATIVE); CLARITY SL. CLOUDY (CLEAR); COLOR YELLOW; GLUCOSE URINE NEGATIVE (NEGATIVE); KETONE URINE NEGATIVE (NEGATIVE); LEUKOCYTES URINE 1+ (NEGATIVE); NITRITE URINE NEGATIVE (NEGATIVE); PH URINE 6.5; PROTEIN URINE TRACE mg/dL (NEGATIVE); SP GRAVITY URINE 1.015; UROBILINOGEN URINE NORMAL
[2018-08-12 21:35] LABS: URINE SOURCE CLEAN CATCH
[2018-08-12 21:37] LABS: URINE RBC <10 /HPF (<10)
[2018-08-12 21:38] LABS: URINE BACTERIA NEGATIVE /HFP; URINE CAST NONE SEEN /LPF; URINE CRYSTAL NONE SEEN /HPF; URINE EPITHELIAL CELLS <10 /HPF (<10); URINE SMALL ROUND CELLS TRANSITIONAL PRESENT; URINE YEAST NONE SEEN /HPF
[2018-08-13] MEDS: SYNTHROID PO SCH (06:11)
[2018-08-13] MEDS: PRILOSEC PO SCH (06:11)
--- NOTE | 2018-08-13 07:33 | Diag Imaging Result Doc PS360 ---
EXAM: CHEST-2 VIEWS HISTORY: SOB TECHNIQUE: Chest two views COMPARISON: 08/11/2018 FINDINGS: There is a small to moderate-sized left pleural effusion similar to the prior exam. No right-sided effusion. The heart remains mildly enlarged. There is atelectasis in the left lung base and there may be an underlying infiltrate. Mild central vascular prominence. IMPRESSION: No interval improvement. Electronically signed by Hussain Gamez 08/13/2018 7:31 AM
[2018-08-13] MEDS: HYDROCHLOROTHIAZIDE PO SCH (08:26)
[2018-08-13] MEDS: COREG PO SCH ×2 (08:26→21:54)
[2018-08-13] MEDS: ARICEPT PO SCH (08:27)
[2018-08-13] MEDS: AVAPRO PO SCH (08:28)
[2018-08-13] MEDS: KLOR-CON PO SCH (08:30)
[2018-08-13] MEDS: LOVENOX SUBQ SCH ×2 (08:30→21:54)
[2018-08-13 16:58] LABS: AGAP 10; ALBUMIN 3.8 g/dL (3.5-5.0); ALKALINE PHOSPHATASE 134 U/L (32-104); BUN 14 mg/dL (8-22); CALCIUM 8.6 mg/dL (8.8-10.2); CHLORIDE 98 mmol/L (98-107); COSMO 283; CREATININE 0.7 mg/dL (0.5-0.9); ESTIMATED GFR > 60; GLUCOSE 125 mg/dL (70-104); GOT 11 U/L (10-30); GPT < 5 U/L (10-36); POTASSIUM 3.4 mmol/L (3.5-5.1); SODIUM 141 mmol/L (136-145); TCO2 33 mmol/L (25-35); TOTAL PROTEIN 6.9 g/dL (6.3-8.3)
[2018-08-13] MEDS ORDERED: LASIX IV ONE (19:17)
[2018-08-14] MEDS: PRILOSEC PO SCH (06:00)
[2018-08-14] MEDS: SYNTHROID PO SCH (06:00)
[2018-08-14] MEDS: COREG PO SCH (08:35)
[2018-08-14] MEDS: KLOR-CON PO SCH (08:35)
[2018-08-14] MEDS: LOVENOX SUBQ SCH ×2 (08:35→21:52)
[2018-08-14] MEDS: ARICEPT PO SCH (08:35)
[2018-08-14] MEDS: AVAPRO PO SCH (08:35)
[2018-08-14] MEDS: HYDROCHLOROTHIAZIDE PO SCH (08:35)
--- NOTE | 2018-08-14 15:37 | PROGRESS NOTE ---
DATE: 08/14/2018 She was admitted to the hospital with heart failure. She continues to support good vital signs with a temperature of 97.6, pulse 83, blood pressure 131/69, respiratory rate 18, and O2 saturation 98% on 2 L. She is lying flat and comfortably in the bed using supplemental O2. There are no signs of any significant amount of extra fluid in her legs. She may be slightly tachypneic. We are awaiting Cardiology's evaluation of the data to this date and whether we need to pursue any further diagnostic studies or treat her simply as congestive heart failure with a history of high blood pressure. She has never had a heart attack. So, we are awaiting the Cardiology consult currently. cc: Steve Saldaña MD
--- NOTE | 2018-08-14 15:50 | PROGRESS NOTE ---
DATE: 08/13/2018 The patient was admitted for heart failure; no history of the same. Progressive shortness of breath led to her admission through the Emergency Room. Yesterday she had an echocardiogram done evaluating her heart failure. She has an ejection fraction of 40%. She has concentric left ventricular hypertrophy. There is anteroseptal hypokinesis, bilateral atrial enlargement, moderate mitral regurgitation, and diastolic dysfunction. No aortic stenosis. There is aortic sclerosis and she has mild aortic and tricuspid regurgitation. No pericardial effusions. VITAL SIGNS: Temperature is 97.9, pulse 69, respirations 22, BP 168/65. and O2 saturation 99% on 2 L. We are continuing to periodically give her supplemental Lasix therapy. There is no evidence of any edema anywhere. Her sodium today is 141, potassium 3.4, chloride 98, CO2 33, BUN 14, creatinine 0.7, GFR greater than 60, glucose 125, calcium 8.6, magnesium 1.7, bilirubin 0.5, AST 11, ALT less than 5, and ALK PHOS 134. Liver function is otherwise normal. IMPRESSION: 1. Hypertension. 2. Left ventricular dysfunction with systolic and diastolic components. cc: Steve Saldaña MD
[2018-08-14] MEDS ORDERED: LASIX IV ONE (21:11)
[2018-08-14] MEDS ORDERED: LASIX PO ONE (22:01)
--- NOTE | 2018-08-14 22:17 | EKG Report ---
Test Performed on : 08/14/2018 9:47:39 PM Test Reason : chf Blood Pressure : / mmHG Vent. Rate : 062 BPM Atrial Rate : 062 BPM P-R Int : 162 ms QRS Dur : 116 ms QT Int : 468 ms P-R-T Axes : 022 083 -26 degrees QTc Int : 475 ms Normal sinus rhythm. Cannot rule out Inferior infarct , age undetermined Abnormal ECG When compared with ECG of 14-AUG-2018 12:36, (Unconfirmed) Minimal criteria for Inferior infarct are now present T wave inversion no longer evident in Anterior leads Confirmed by Steve Saldaña MD ([id number]) on 08/17/2018 4:18:37 AM
--- NOTE | 2018-08-15 01:45 | CONSULTATION ---
DATE OF CONSULTATION: 08/14/2018 IMPRESSION: 1. Acute on chronic congestive heart failure of mixed etiology both systolic and diastolic. 2. Cardiomyopathy with a left ejection fraction of 40%. 3. Dementia. 4. Hypertension. 5. Hypothyroidism. RECOMMENDATIONS: 1. Diurese. 2. Try and simplify antihypertensive regimen and cardiovascular regimen to once daily regimen or even topical regimens where permitted given the patient's reluctance to take medications at times. 3. Given the patient's significant dementia and limited functional status, conservative cardiovascular management overall. HISTORY OF PRESENT ILLNESS: This 88-year-old white female with a past history of longstanding hypertension, hypothyroidism, and significant dementia was admitted several days ago for congestive heart failure. She is not able to give much history due to her cognitive impairment. She is not exactly sure why she is here. Her indicates that she has had progressive development of exertional dyspnea over the last 8 months or so. She has gotten to the point where she recently had difficulty walking to the mailbox and back without effort limiting dyspnea, and even very recently started having trouble walking through the house without effort limiting dyspnea. There has been no orthopnea nor chest pain. She has also had peripheral swelling/ankle swelling emerging with her symptoms. She has significant cognitive impairment and often will avoid taking her medications. Her notes that she will sometimes sneak her medications back into her pillbox, and deny that she has not taken her medications. They are not in the habit of checking her blood pressure at home, but he strongly suspects her blood pressure has not been very well controlled because of her noncompliance. She does not do very much self-care. She avoids taking baths or showers. PAST MEDICAL HISTORY: 1. Longstanding hypertension. 2. Hypothyroidism. 3. Dementia. PAST SURGICAL HISTORY: Includes hysterectomy and left total knee replacement. ALLERGIES: She has no known drug allergies. MEDICATIONS PRIOR TO ADMISSION: As listed. SOCIAL HISTORY: She is and lives with her who is primary caregiver. She does not smoke. She drinks a rare alcoholic beverage. FAMILY HISTORY: Negative for premature coronary disease. REVIEW OF SYSTEMS: Pulmonary: Negative. Gastrointestinal: Negative. Constitutional: Negative. Remainder of review of systems is negative/noncontributory with 14 total systems reviewed. PHYSICAL EXAMINATION: General: Reveals an overweight elderly white female in no distress. Vital signs: Blood pressure 142/64, heart rate 66, with ECG monitor showing sinus rhythm, oxygen saturation 96% on nasal cannula oxygen at 2 L per minute. HEENT: Extraocular muscles appear intact. Mucous membranes moist. Neck: Supple. Jugular distention is evident suggesting elevated central venous pressure. Chest: Auscultation of the chest reveals diminished breath sounds in the left base with some coarse inspiratory crackles in the left base. There is some diminished breath sounds to a lesser extent in the right base. Cardiac: Exam reveals a regular rate and rhythm without appreciable murmur or gallop. Abdomen: Soft. Bowel sounds are normal. Extremities: Without edema. Neurologic: Reveals her to be alert and responsive. Speech is fluent. Memory is obviously very poor. She moves all 4 extremities equally well. IMAGING DATA: Twelve-lead EKG not currently in electronic medical record and apparently not yet performed. We will order a 12 lead EKG. LABORATORY DATA: Includes a sodium 141, potassium 3.4, chloride 98, carbon dioxide 33, BUN 14, creatinine 0.7, glucose 125. ProBNP 5883. TSH 8.85. White blood cell count 7.14, hematocrit 36.4, hemoglobin 11.4, platelet count 244,000. Chest x-ray was reviewed and demonstrates mild cardiomegaly, calcified aortic knob, moderate size left pleural effusion, central vascular prominence, and atelectasis in the left lung base. There has been no improvement since previous chest x-ray obtained on admission. cc: MD Steve Castro MD
[2018-08-15] MEDS: SYNTHROID PO SCH (06:21)
[2018-08-15] MEDS: PRILOSEC PO SCH (06:21)
--- NOTE | 2018-08-15 07:42 | Diag Imaging Result Doc PS360 ---
EXAM: CHEST-1 VIEW HISTORY: routine TECHNIQUE: Chest single view COMPARISON: 08/13/2018 FINDINGS: The lungs are well expanded except for left basilar atelectasis. The heart is not enlarged. The vessels are not distended. There are no infiltrates. There is a small left pleural effusion similar to the prior exam. IMPRESSION: Stable chest Electronically signed by Hussain Gamez 08/15/2018 7:40 AM
[2018-08-15] MEDS ORDERED: LASIX PO SCH (09:00)
[2018-08-15] MEDS ORDERED: TOPROL XL PO SCH (09:00)
[2018-08-15 09:57] LABS: BASO# 0.04 X1000 (0.0-0.2); BASO% 0.5 % (0.0-0.8); EOS# 0.18 X1000 (0.0-0.7); EOS% 2.5 % (0.0-10.0); HEMATOCRIT 38.2 % (37.0-47.0); HEMOGLOBIN 11.9 g/dL (12.0-16.0); IMM GRAN# 0.02 X1000 (0.0-0.04); IMM GRAN% 0.3 % (0.0-0.5); LYMPH# 1.05 X1000 (1.2-3.4); LYMPH% 14.4 % (20.5-51.1); MCH 26.6 PG (27-31); MCHC 31.2 g/dL (33-37); MCV 85.5 FL (81-99); MONO# 0.61 X1000 (0.11-0.59); MONO% 8.4 % (1.7-9.3); MPV 10.4 FL (7.4-10.4); NEUT% 73.9 % (42.2-75.2); PLT 244 X1000 (130-400); RBC 4.47 XMIL (4.2-5.4); RDW 15.2 % (11.5-14.5)
[2018-08-15 10:29] LABS: AGAP 12; ALBUMIN 3.4 g/dL (3.5-5.0); ALKALINE PHOSPHATASE 114 U/L (32-104); BUN 15 mg/dL (8-22); CALCIUM 8.5 mg/dL (8.8-10.2); CHLORIDE 97 mmol/L (98-107); COSMO 282; CREATININE 0.7 mg/dL (0.5-0.9); ESTIMATED GFR > 60; GLUCOSE 135 mg/dL (70-104); GOT 21 U/L (10-30); GPT < 5 U/L (10-36); POTASSIUM 3.2 mmol/L (3.5-5.1); SODIUM 140 mmol/L (136-145); TCO2 32 mmol/L (25-35); TOTAL PROTEIN 6.5 g/dL (6.3-8.3)
[2018-08-15] MEDS: LOVENOX SUBQ SCH (10:41)
[2018-08-15] MEDS: KLOR-CON PO SCH (10:41)
[2018-08-15] MEDS: ARICEPT PO SCH (10:42)
[2018-08-15] MEDS: HYDROCHLOROTHIAZIDE PO SCH (10:42)
[2018-08-15] MEDS: AVAPRO PO SCH (10:42)
--- NOTE | 2018-08-15 13:28 | EKG Report ---
Test Performed on : 08/14/2018 12:36:35 PM Test Reason : To update charted rhythm for cardio consult Blood Pressure : / mmHG Vent. Rate : 056 BPM Atrial Rate : 056 BPM P-R Int : 160 ms QRS Dur : 112 ms QT Int : 502 ms P-R-T Axes : 027 065 041 degrees QTc Int : 484 ms Sinus bradycardia. T wave abnormality, consider anterior ischemia Prolonged QT Abnormal ECG When compared with ECG of 17-NOV-2017 21:38, premature supraventricular complexes. are no longer present Nonspecific T wave abnormality, worse in Inferior leads T wave inversion now evident in Anterior leads Confirmed by Steve Saldaña MD ([id number]) on 08/17/2018 4:19:45 AM
[2018-08-15 14:30] LABS: AGAP 14; ALBUMIN 3.6 g/dL (3.5-5.0); ALKALINE PHOSPHATASE 128 U/L (32-104); BUN 15 mg/dL (8-22); CALCIUM 8.3 mg/dL (8.8-10.2); CHLORIDE 96 mmol/L (98-107); CK PROFILE 41 U/L (24-173); COSMO 284; CREATININE 0.8 mg/dL (0.5-0.9); ESTIMATED GFR > 60; GLUCOSE 134 mg/dL (70-104); GOT 23 U/L (10-30); GPT 5 U/L (10-36); MAGNESIUM 1.6 mg/dL (1.5-2.7); POTASSIUM 3.4 mmol/L (3.5-5.1); SODIUM 141 mmol/L (136-145); TCO2 31 mmol/L (25-35); TOTAL PROTEIN 6.2 g/dL (6.3-8.3)
[2018-08-15 16:28] VITALS: BP 135/81
--- NOTE | 2018-09-19 13:18 | HISTORY AND PHYSICAL ---
The patient is an 88-year-old female who I see in my office who is being treated for hypertension, thyroid disease and early dementia. She presented with swollen ankles and shortness of breath. She denied any chest pain. She has been short of breath at rest. Her reports that she does not take her medications consistently at home and reports she has been short of breath off and on for the last couple of months with limited to almost nonexistent exercise tolerance. He brought her here. She alleges this has been going on for a couple of months. No sort of triggering features other than not taking her medications, but her primary symptoms are just simply shortness of breath. In the ER afebrile, pulse 78, 18 respiratory rate, 187/116 blood pressure, 91 O2 saturation. CBC was essentially normal. Electrolytes were normal, BUN 19, creatinine 0.6, blood sugar 114. Cardiac enzymes are negative. Clotting studies were normal. Chest x-ray showed new vascular congestion, bibasilar air space disease and effusions left greater than right, suspicious of cardiogenic edema. No changes from previous films, between the 2 films that were taken on this admission. Compared to previous studies, there seems to be more vascular congestion, bibasilar air space disease and effusions. So, she is admitted from the ER with hypertension, pulmonary edema, dementia. ALLERGIES: She has no known allergies. CURRENT MEDICATIONS: Carvedilol, irbesartan, hydrochlorothiazide 300/ 12.5 omeprazole, celecoxib 100 mg, levothyroxine once daily unknown dose, clonidine 0.1 p.r.n. t.i.d., Aricept 10. PAST MEDICAL HISTORY: She has hypertension and has been generally healthy, no significant problems. She has had a previous a hysterectomy. She has a history of melanoma. REVIEW OF SYSTEMS: She has not had any significant weight gain or weight loss, has some swelling in her legs. 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 She has no focal neurological deficits. EYES: No change in visual acuity. No irrigation of her eyes. ENT: No pharyngitis, sinusitis or otitis. CARDIOVASCULAR: See present illness. RESPIRATORY: See present illness. GASTROINTESTINAL: No nausea, vomiting, diarrhea, constipation, blood stools, black stools. GENITOURINARY: No hematuria, polyuria. She has some urinary incontinence. MUSCULOSKELETAL: Some nonspecific joint pains. SKIN: No particular skin lesions. NEUROLOGICAL: No focal neurological deficits. PSYCHIATRIC: She is demented and becoming more so. ENDO: No polyuria or polydipsia. No significant weight changes. HEMATOLOGIC: No history of any DVT, SVT, PTE, clotting or bleeding disorders. ALLERGIC: No history of asthma, rhinitis or sinusitis. PHYSICAL EXAMINATION: VITAL SIGNS: At the time of admission temperature is 98.2; respiratory rate 20; pulse 72; blood pressure 175/99; O2 saturation 97 on 2 liters. HEENT: Head is normocephalic. Eyes were PERRL. EOMs intact. SC clear. Fundi benign. Nares patent. Oropharynx negative. NECK: Midline trachea. No JVD. Carotids without bruits. No thyromegaly. CHEST: Bilateral clear breath sounds. CARDIOVASCULAR: Regular rhythm and rate. No murmurs, gallops, clicks or rubs. ABDOMEN: Obese. No hepatosplenomegaly. EXTREMITIES: Negative for clubbing or cyanosis. Trace edema. ADMITTING DIAGNOSES: 1. Pulmonary edema. 2. Hypertension. 3. Noncompliance. 4. Dementia. She is admitted for respiratory therapy. cc: Steve Saldaña MD MTDD
--- NOTE | 2018-09-21 09:25 | DISCHARGE SUMMARY ---
ADMISSION DATE: 08/11/2018 DISCHARGE DATE: 08/15/2018 HISTORY OF PRESENT ILLNESS: She is an 88-year-old clinic patient of mine, being treated for hypertension, thyroid disease and early dementia. She has been remiss on taking her medicines and has become progressively short of breath. Presented to the emergency room with swollen ankles, shortness of breath. No chest pain. No pain or any type. As long as she is sitting around, she is pretty good. But her says any time she moves around, she gets dramatically short of breath. In the ER, she had a chest x-ray which showed new vascular congestion, bibasilar airspace disease, effusions, left greater than right. Suspicious of cardiogenic edema. Cardiac enzymes and cardiac workup in general was negative. She was admitted from the ER with CHF. DATABASE: Her CBC was essentially normal on admission. Normal white count. Normal hematocrit. Platelet count was normal. Coags were normal. ProBNP was 5230. Her electrolytes showed sodium 141, potassium 3.4, chloride 98, CO2 was 33, BUN was 14, creatinine 0.7, GFR greater than 60, glucose 125. Total protein and albumin were normal. She had some cardiac enzymes that were negative. Her culture of urine was no growth. She had some pyuria on admission. Her x-ray studies had initial x-ray showing previously mentioned CHF. On discharge, her lungs were well expanded except for left basilar atelectasis. Heart was not enlarged. The vessels were not distended. No infiltrates. There was a small left pleural effusion. She was discharged. We told her it is important for her to take her blood pressure medicine and her diuretic and not leave it up to her, given she is becoming demented. He has agreed. She is going to come to the office. We are going to do an echocardiogram on her and follow up her echocardiogram. DIAGNOSES: 1. Congestive heart failure. 2. Hypertension. 3. Dyslipidemia. 4. Dementia. cc: Steve Saldaña MD
== END 2018-08-15 16:29 | disposition home health service (06) | DRG 293 ==
LOC: P.ED 14:23 → SUATTDRO 19:50 → P.MEDSURG 19:50
PROVIDERS: ADMIT Internal Medicine; ATTEND Internal Medicine
CPT/HCPCS: 71010; 71020; 71045; 71046; 80048; 80053; 81001; 82550; 83735; 83880; 84443; 84484; 85025; 85610; 85730; 87088; 93005; 93010; 93306; 94761; 96374; 99285; A9270; C8929; J1650; J1940; Q9957